=== PATIENT | male | born 1955 | race Caucasian/White ===

== ENCOUNTER 2020-08-14 21:43 | Inpatient (IN) | payer MEDICARE, OTHER ==
[~2020-08-14] VITALS: Ht 162.6 cm; Wt 54.9 kg
[~2020-08-14 21:43] MED LIST: ASPIRIN EC81 MG PO; BENADRYL25 MG PO; BUMETANIDE1 MG PO; CLARITIN10 MG PO; DOCUSATE SODIU100 MG PO; HYDRALAZINE HCL25 MG PO; HYDROXYZINE HCL25 MG PO; INVANZ 1 GM VIAL1 GM IV; IPRAT-ALBUT 0.5-3 ML INH; ISOSORBIDE MONO10 MG PO; KEPPRA250 MG PO; KEPPRA500 MG PO; LANTUS100 UNIT/1 SQ; LEXAPRO10 MG PO; LIPITOR40 MG PO; MIRALAX17 GM PO; NEURONTIN100 MG PO; NOVOLOG 10100 UNITS/ INJ; OMNICEF 300 MG300 MG PO; PLAVIX 75 MG TA75 MG PO; PROTONIX 40 MG40 M1 PO; REMERON15 MG PO; TYLENOL325 MG PO; ZOFRAN ODT 4 MG4 MG PO
[2020-08-14 23:07] LABS: HEMOGLOBIN 8.8 gm/dl (14.0-17.5); RED BLOOD COUNT 3.28 M/UL (4.20-5.50); WHITE BLOOD COUNT 9.2 K/UL (4.5-11.0)
[2020-08-14 23:28] LABS: BUN/CREATININE RATIO 19 (0-10)
[2020-08-15] MEDS ORDERED: HUMALOG MI100 UNIT/2 SC (11:19)
[2020-08-15 11:40] LABS: BODY FLUID SOURCE PLEURAL
[2020-08-15 11:43] LABS: MONONUCLEAR CELLS 81.4 (75-100); POLYMORPHONUCLEAR % 18.6 (0-25); RBC (AUTOMATED) 55000 (0-100000); WBC (AUTOMATED) 478 (0-500)
[2020-08-15 13:04] LABS: HEMOGLOBIN 9.6 gm/dl (14.0-17.5)
[2020-08-16 02:55] LABS: HEMOGLOBIN 8.8 gm/dl (14.0-17.5); RED BLOOD COUNT 3.35 M/UL (4.20-5.50); WHITE BLOOD COUNT 7.5 K/UL (4.5-11.0)
[2020-08-17 12:23] LABS: BUN/CREATININE RATIO 22 (0-10)
[2020-08-18 04:06] LABS: HEMOGLOBIN 8.2 gm/dl (14.0-17.5); RED BLOOD COUNT 3.05 M/UL (4.20-5.50)
[2020-08-18 04:24] LABS: BUN/CREATININE RATIO 22 (0-10)
[2020-08-19 03:00] LABS: RED BLOOD COUNT 3.08 M/UL (4.20-5.50); WHITE BLOOD COUNT 5.4 K/UL (4.5-11.0)
[2020-08-19 03:28] LABS: BUN/CREATININE RATIO 23 (0-10)
[2020-08-20 02:34] LABS: HEMOGLOBIN 7.5 gm/dl (14.0-17.5); RED BLOOD COUNT 2.86 M/UL (4.20-5.50); WHITE BLOOD COUNT 5.3 K/UL (4.5-11.0)
[2020-08-20 02:58] LABS: BUN/CREATININE RATIO 20 (0-10)
== END 2020-08-21 12:45 | DRG 180 ==
LOC: ER1 21:43 → CDU 08-15 08:22 → PROG CARE 08-15 08:22
PROVIDERS: Emergency Medicine; Internal Medicine; Physician Assistant Medical; ADMIT Internal Medicine
PROC: 0W9B30Z Drainage of Left Pleural Cavity with Drainage Device, Percutaneous Approach (ICD-10-PCS; principal; 2020-08-15)
DX: C34.90 Malignant neoplasm of unspecified part of unspecified bronchus or lung (principal); J18.9 Pneumonia, unspecified organism; J96.01 Acute respiratory failure with hypoxia; J90 Pleural effusion, not elsewhere classified; J93.9 Pneumothorax, unspecified; I50.32 Chronic diastolic (congestive) heart failure; N17.9 Acute kidney failure, unspecified; I69.351 Hemiplegia and hemiparesis following cerebral infarction affecting right dominant side; J98.11 Atelectasis; I13.0 Hypertensive heart and chronic kidney disease with heart failure and stage 1 through stage 4 chronic kidney disease, or unspecified chronic kidney disease; C38.3 Malignant neoplasm of mediastinum, part unspecified; R65.10 Systemic inflammatory response syndrome (SIRS) of non-infectious origin without acute organ dysfunction; C79.9 Secondary malignant neoplasm of unspecified site; N18.9 Chronic kidney disease, unspecified; F41.9 Anxiety disorder, unspecified; Z20.822 Contact with and (suspected) exposure to COVID-19; R00.0 Tachycardia, unspecified; N40.0 Benign prostatic hyperplasia without lower urinary tract symptoms; D63.1 Anemia in chronic kidney disease; E11.22 Type 2 diabetes mellitus with diabetic chronic kidney disease; I11.0 Hypertensive heart disease with heart failure; K21.9 Gastro-esophageal reflux disease without esophagitis; I73.9 Peripheral vascular disease, unspecified; D53.9 Nutritional anemia, unspecified; E78.5 Hyperlipidemia, unspecified; R13.10 Dysphagia, unspecified; E86.0 Dehydration; E11.9 Type 2 diabetes mellitus without complications; J44.9 Chronic obstructive pulmonary disease, unspecified; J38.00 Paralysis of vocal cords and larynx, unspecified; Z79.82 Long term (current) use of aspirin; Z79.01 Long term (current) use of anticoagulants; Z79.899 Other long term (current) drug therapy; Z88.0 Allergy status to penicillin; Z80.6 Family history of leukemia; Z87.891 Personal history of nicotine dependence
CPT/HCPCS: ECHO; 36415; 36600; 70450; 71045; 71250; 80048; 80053; 81001; 82550; 82553; 82607; 82728; 82746; 82803; 82945; 82962; 83036; 83540; 83550; 83605; 83690; 83735; 83880; 84132; 84484; 85014; 85018; 85025; 85027; 85610; 85730; 87040; 87070; 87205; 88341; 88342; 89051; 90471; 92526; 92610; 93005; 93306; 94640; 94664; 94760; 96365; 96366; 96367; 96372; 96375; 96376; 99285; J0692; J2060; J2270; J2997; J3370; J7030; J7050; U0002

== ENCOUNTER 2020-08-24 09:02 | Emergency (ER) | payer MEDICARE, OTHER ==
[~2020-08-24 09:02] MED LIST changes: +HUMALOG MI100 UNIT/2 SC
[2020-08-24 09:58] LABS: HEMOGLOBIN 9.4 gm/dl (14.0-17.5); RED BLOOD COUNT 3.53 M/UL (4.20-5.50); WHITE BLOOD COUNT 5.5 K/UL (4.5-11.0)
[2020-08-24 10:33] LABS: BUN/CREATININE RATIO 16 (0-10)
[2020-08-24] MEDS ORDERED: INVANZ 1 GM VIAL1 GM IM (14:38)
== END 2020-08-24 14:52 | disposition home or self-care (01) ==
LOC: ER1 09:02
PROVIDERS: Emergency Medicine
DX: J18.9 Pneumonia, unspecified organism (principal); C34.90 Malignant neoplasm of unspecified part of unspecified bronchus or lung; J96.91 Respiratory failure, unspecified with hypoxia; R00.0 Tachycardia, unspecified; I10 Essential (primary) hypertension; J44.9 Chronic obstructive pulmonary disease, unspecified; Z86.73 Personal history of transient ischemic attack (TIA), and cerebral infarction without residual deficits; Z88.0 Allergy status to penicillin; Z20.822 Contact with and (suspected) exposure to COVID-19
CPT/HCPCS: 36600; 71045; 80053; 82550; 82553; 82803; 83605; 83690; 83735; 83874; 83880; 84484; 85025; 85610; 85730; 87040; 93005; 94664; 96372; 96374; 99285; J1335; J2930; J7030; U0002